=== PATIENT | female | born 1980 | race Two or more races ===

== ENCOUNTER 2018-07-02 14:44 | Emergency (ER) | payer SELFPAY ==
[~2018-07-02] VITALS: Ht 157.5 cm; Wt 64.9 kg
[2018-07-02] MEDS ORDERED: IV NORMAL SALINE 1000ML BAG 1,000 ML IV ONE (15:15)
[2018-07-02] MEDS ORDERED: ONDANSETRON PF 4 MG/2 ML VIAL. IV ONE (15:15)
[2018-07-02] MEDS ORDERED: MORPHINE SULFATE 4 MG/ML VIAL. IV ONE ×2 (15:15→17:45)
--- NOTE | 2018-07-02 15:19 | PHYS DOC ---
Past Medical History Past Medical History: No Pertinent History (BURAK GRAJEDA) Past Surgical History: Cholecystectomy (BURAK GRAJEDA) Alcohol Use: None Drug Use: None (BURAK GRAJEAD) Adult General Chief Complaint Chief Complaint: FLANK PAIN HPI HPI Patient is a 38 year old F who is indonesian speaking only so I spoke with her via the chip crusher operator phone. Pt reports L flank pain that wraps around her L side down to her L lower abd since yesterday with N/V. She denies any history of kidney stones. She denies fevers. She has been constipated and states she hasn't had a bowel movement in 2-3 days. Pt has had prior cholecystectomy, 4 prior c-sections, and a surgery for what sounds like an ovarian cyst. She is currently on control pills but states her periods have been somewhat irregular. (BURAK GRAJEDA) Review of Systems Review of Systems Constitutional: Denies fever or chills HENT: Denies nasal congestion or sore throat Respiratory: Denies cough or shortness of breath Cardiovascular: Denies chest pain GI: Reports abdominal pain on L side and nausea. No BM x 2-3 d : Denies dysuria or hematuria. Musculoskeletal: L flank pain Neurologic: Denies headache, focal weakness or sensory changes Endocrine: Denies polyuria or polydipsia All other systems were reviewed and found to be within normal limits, except as documented in this note. (BURAK GRAJEDA) Current Medications Current Medications Current Medications Medications (Trade) Dose Ordered Sig/Pancho Start Time Stop Time Status Last Admin Dose Admin Morphine Sulfate (Morphine Sulfate) 4 mg 1X ONCE 07/02/18 17:45 07/02/18 17:46 DC 07/02/18 17:54 4 MG Ondansetron HCl (Zofran) 4 mg 1X ONCE 07/02/18 15:15 07/02/18 15:20 DC 07/02/18 15:47 4 MG Sodium Chloride 1,000 ml @ 1,000 mls/hr 1X ONCE 07/02/18 15:15 07/02/18 16:14 DC 07/02/18 15:47 1,000 MLS/HR (ERAN MELARA MD) Allergies Allergies Allergies Coded Allergies Type Severity Reaction Last Updated Verified No Known Drug Allergies 09/28/13 No (ERAN MELARA MD) Physical Exam Physical Exam Constitutional: Well developed, well nourished, nontoxic appearance. Appears uncomfortable. HENT: Normocephalic, atraumatic, oropharynx moist Neck: Normal range of motion, no tenderness, supple, no stridor. Cardiovascular:Heart rate regular rhythm, no murmur Lungs & Thorax: Bilateral breath sounds clear to auscultation Abdomen: Bowel sounds normal, soft, no masses, no pulsatile masses. L sided abd pain down to LLQ. Skin: Warm, dry, no erythema, no rash. Back: L CVA tenderness. Extremities: No tenderness, no cyanosis, no clubbing, ROM intact, no edema. Neurologic: Alert and oriented X 3, normal motor function, normal sensory function, no focal deficits noted. Psychologic: Affect normal, judgement normal, mood normal. (BURAK GRAJEDA) Current Patient Data Vital Signs Vital Signs Date Time Temp Pulse Resp B/P (MAP) Pulse Ox O2 Delivery O2 Flow Rate FiO2 07/02/18 19:00 102 22 130/72 (91) 100 07/02/18 15:05 98.2 Room Air 98.2 (ERAN MELARA MD) Lab Values Laboratory Tests Test 07/02/18 14:50 07/02/18 14:57 07/02/18 15:40 Urine Color Yellow Urine Clarity Clear Urine pH 6.5 Urine Specific [place] 1.010 Urine Protein Negative mg/dL (NEG-TRACE) Urine Glucose (UA) Negative mg/dL (NEG) Urine Ketones (Stick) Negative mg/dL (NEG) Urine Blood Small (NEG) Urine Nitrite Negative (NEG) Urine Bilirubin Negative (NEG) Urine Urobilinogen Dipstick 0.2 mg/dL (0.2 mg/dL) Urine Leukocyte Esterase Negative (NEG) Urine RBC 1-2 /HPF (0-2) Urine WBC 1-4 /HPF (0-4) Urine Squamous Epithelial Cells Occ /LPF Urine Bacteria 0 /HPF (0-FEW) Urine Mucus Slight /LPF POC Urine HCG, Qualitative Hcg negative (Negative) White Blood Count 11.1 x10^3/uL (4.0-11.0) H Red Blood Count 4.43 x10^6/uL (3.50-5.40) Hemoglobin 11.2 g/dL (12.0-15.5) L Hematocrit 34.4 % (36.0-47.0) L Mean Corpuscular Volume 78 fL (79-100) L Mean Corpuscular Hemoglobin 25 pg (25-35) Mean Corpuscular Hemoglobin Concent 33 g/dL (31-37) Red Cell Distribution Width 19.3 % (11.5-14.5) H Platelet Count 463 x10^3/uL (140-400) H Neutrophils (%) (Auto) 73 % (31-73) Lymphocytes (%) (Auto) 16 % (24-48) L Monocytes (%) (Auto) 9 % (0-9) Eosinophils (%) (Auto) 1 % (0-3) Basophils (%) (Auto) 1 % (0-3) Neutrophils # (Auto) 8.2 x10^3uL (1.8-7.7) H Lymphocytes # (Auto) 1.8 x10^3/uL (1.0-4.8) Monocytes # (Auto) 1.0 x10^3/uL (0.0-1.1) Eosinophils # (Auto) 0.1 x10^3/uL (0.0-0.7) Basophils # (Auto) 0.1 x10^3/uL (0.0-0.2) Maternal Serum HCG Beta Subunit < 1 mIU/mL (0-5) Sodium Level 137 mmol/L (136-145) Potassium Level 3.9 mmol/L (3.5-5.1) Chloride Level 102 mmol/L (98-107) Carbon Dioxide Level 23 mmol/L (21-32) Anion Gap 12 (6-14) Blood Urea Nitrogen 7 mg/dL (7-20) Creatinine 0.8 mg/dL (0.6-1.0) Estimated GFR (Cockcroft-Gault) 79.9 BUN/Creatinine Ratio 9 (6-20) Glucose Level 87 mg/dL (70-99) Calcium Level 9.2 mg/dL (8.5-10.1) Total Bilirubin 0.3 mg/dL (0.2-1.0) Aspartate Amino Transferase (AST) 19 U/L (15-37) Alanine Aminotransferase (ALT) 21 U/L (14-59) Alkaline Phosphatase 104 U/L (46-116) Total Protein 8.8 g/dL (6.4-8.2) H Albumin 3.8 g/dL (3.4-5.0) Albumin/Globulin Ratio 0.8 (1.0-1.7) L Laboratory Tests 07/02/18 15:40 Laboratory Tests 07/02/18 15:40 (ERAN MELARA MD) EKG EKG [] (BURAK GRAJEDA) Radiology/Procedures Radiology/Procedures CT shows 6mm L ureteral stone at UVJ (BURAK GRAJEDA) Course & Med Decision Making Course & Med Decision Making Pertinent Labs and Imaging studies reviewed. (See chart for details) 6 mm L UVJ stone noted on CT. Pt has a few bacteria on urine, nothing too significant but with this stone size will cover with Keflex, Flomax, [place] and Zofran. I have recommended rest and fluids and close follow up with urology. Name and number for Dr. Loera provided. Pt to return with any worsening symptoms. Discussed all findings and care plan with pt via chip crusher operator phone. (BURAK GRAJEDA) Course & Med Decision Making Staff Physician Addendum: I was working in the ER during the course of this patient's visit. I was avail able for consultation as needed, but I was not directly involved in the care of this patient. (ERAN MELARA MD) Dragon Disclaimer Dragon Disclaimer This electronic medical record was generated, in whole or in part, using a voice recognition dictation system. (BURAK GRAJEDA) Departure Departure Impression: Primary Impression: Kidney stone on left side Disposition: HOME, SELF-CARE Condition: IMPROVED Referrals: UNKNOWN PCP NAME (PCP) RICKI LOERA MD Patient Instructions: Kidney Stones, [id number] Additional Instructions: Push fluids, rest and follow up closely with urology, Dr. Loera. Scripts Ondansetron Hcl (ZOFRAN) 4 Mg Tablet 1 TAB PO Q6HRS, #20 TAB Prov: BURAK GRAJEDA 07/02/18 Tamsulosin Hcl (FLOMAX) 0.4 Mg Cap.er.24h 1 CAP PO DAILY, #14 CAP 11 Refills Prov: BURAK GRAJEDA 07/02/18 Hydrocodone/Apap 5-325 (NORCO 5-325 TABLET) 1 Each Tablet 1-2 TAB PO Q4-6HRS PRN for PAIN, #20 TAB Prov: BURAK GRAJEDA 07/02/18 Cephalexin (KEFLEX) 500 Mg Capsule 1 CAP PO TID, #21 CAP Prov: BURAK GRAJEDA 07/02/18 BURAK GRAJEDA July 02, 2018 15:19 ERAN MELARA MD July 04, 2018 00:47
[2018-07-02 15:23] LABS: BILIRUBIN,URINE NEGATIVE (NEG); CLARITY,URINE CLEAR; COLOR,URINE YELLOW; NITRITE,URINE NEGATIVE (NEG); PH,URINE 6.5; PROTEIN,URINE NEGATIVE (NEG-TRACE); UROBILINOGEN,URINE 0.2 mg/dL (0.2 mg/dL)
[2018-07-02 15:30] LABS: BACTERIA,URINE 0 /HPF (0-FEW); SQUAMOUS EPITHELIAL CELL,UR OCC /LPF
[2018-07-02 15:50] LABS: BASO # 0.1 x10^3/uL (0.0-0.2); BASO % 1 % (0-3); EOS # 0.1 x10^3/uL (0.0-0.7); EOS % 1 % (0-3); HEMATOCRIT 34.4 % (36.0-47.0); HEMOGLOBIN 11.2 g/dL (12.0-15.5); LYMPH # 1.8 x10^3/uL (1.0-4.8); LYMPH % 16 % (24-48); MEAN CORPUSCULAR HEMOGLOBIN 25 pg (25-35); MEAN CORPUSCULAR HGB CONC 33 g/dL (31-37); MEAN CORPUSCULAR VOLUME 78 fL (79-100); MONO % 9 % (0-9); NEUT # 8.2 x10^3uL (1.8-7.7); NEUT % 73 % (31-73); PLATELET COUNT 463 x10^3/uL (140-400); RED BLOOD COUNT 4.43 x10^6/uL (3.50-5.40); RED CELL DISTRIBUTION WIDTH 19.3 % (11.5-14.5); WHITE BLOOD COUNT 11.1 x10^3/uL (4.0-11.0)
[2018-07-02 16:13] LABS: CALCIUM 9.2 mg/dL (8.5-10.1); CREATININE 0.8 mg/dL (0.6-1.0); GFR 79.9; POTASSIUM 3.9 mmol/L (3.5-5.1)
[2018-07-02 16:17] LABS: ALBUMIN 3.8 g/dL (3.4-5.0); ALBUMIN/GLOBULIN RATIO 0.8 (1.0-1.7); TOTAL BILIRUBIN 0.3 mg/dL (0.2-1.0); TOTAL PROTEIN 8.8 g/dL (6.4-8.2)
[2018-07-02] MEDS ORDERED: TAMS0.4C97 PO (18:16)
[2018-07-02] MEDS ORDERED: CEPH-264 PO (18:16)
[2018-07-02] MEDS ORDERED: HYDR-3164 PO (18:16)
[2018-07-02] MEDS ORDERED: ONDA4TAB7 PO (18:16)
[2018-07-02 19:00] VITALS: BP 130/72
--- NOTE | 2018-07-03 09:49 | RAD ---
CT abdomen pelvis without contrast dated 07/02/2018. No comparison available. Clinical indication: Left flank pain. TECHNIQUE: Contiguous axial imaging of the abdomen and pelvis performed without the administration of intravenous contrast. One or more of the following individualized dose reduction techniques were utilized for this examination: 1. Automated exposure control 2. Adjustment of the mA and/or kV according to patient size 3. Use of iterative reconstruction technique. FINDINGS: 6 mm calcific stone versus cluster of small stones at the left UVJ with mild proximal hydroureter and hydronephrosis. Inflammatory stranding in the left perinephric fat with asymmetric enlargement of the left kidney. No calcific stone within the substance of either kidney. No right ureteral stone or hydronephrosis. Solid abdominal viscera not well evaluated in the absence of contrast material. No apparent attenuation abnormality of the liver or spleen. Gallbladder surgically absent. Pancreas and adrenal glands are unremarkable. Unopacified GI tract normal in caliber and contour. No focal bowel wall thickening. No inflammatory stranding in the mesentery. The appendix is not clearly identified. No adenopathy or ascites. Abdominal aorta normal in caliber. Images of pelvis show nondistended urinary bladder. Uterus and adnexa are unremarkable. No free fluid or lymphadenopathy. Limited images of lung bases are clear. There is a noncalcified pulmonary nodule in the right lower lobe on image 10 measures 6 mm in size. Heart size within normal limits. No pleural or pericardial effusion. Bone windows show no acute findings. IMPRESSION: 1. There is a 6 mm stone or cluster of small stones at the left UVJ with mild obstructive uropathy. 2. Indeterminate 6 mm noncalcified pulmonary nodule in the right lower lobe. Recommend clinical correlation. Follow-up imaging in 6-12 months to ensure stability. 3. Status post cholecystectomy. Electronically signed by: Akash Martin MD (07/02/2018 5:38 PM) [facility]
== END 2018-07-02 19:00 | disposition home or self-care (01) ==
LOC: ER 14:44
DX: N20.0 Calculus of kidney (principal); R11.2 Nausea with vomiting, unspecified; Z90.49 Acquired absence of other specified parts of digestive tract
CPT/HCPCS: 36415; 74176; 80053; 81001; 81025; 84702; 85025; 96361; 96374; 96375; 96376; 99285; J2270; J2405; J7030

== ENCOUNTER 2021-05-31 16:47 | Inpatient (IN) | payer SELFPAY ==
[~2021-05-31] VITALS: Ht 149.9 cm; Wt 72.9 kg
[~2021-05-31 16:47] MED LIST: CEPH-264 PO; HYDR-3164 PO; ONDA4TAB7 PO; TAMS0.4C97 PO
[2021-05-31] MEDS ORDERED: MORPHINE SULFATE 4 MG/ML INJ. IV/SQ PRN (17:15)
[2021-05-31] MEDS ORDERED: NITROGLYCERIN SUBLINGUAL 0.4 MG BOTTLE OF 25. SL PRN (17:15)
[2021-05-31] MEDS ORDERED: ASPIRIN 325 MG TABLET PO ONE (17:15)
[2021-05-31 17:31] LABS: BARBITURATES NEG (NEG); BENZODIAZEPINES NEG (NEG); CANNABINOIDS NEG (NEG); COCAINE NEG (NEG); METHADONE NEG (NEG); OPIATES NEG (NEG); PHENCYCLIDINE NEG (NEG)
--- NOTE | 2021-05-31 17:31 | RAD ---
XR CHEST 1V History: Reason: chest pain / Spl. Instructions: / History: Comparison: None. Findings: Low lung volumes with mild bibasilar linear atelectasis. No consolidation or pleural effusion. No pne umothorax. Normal heart size. Impression: 1. Low lung volumes with mild bibasilar linear atelectasis. Electronically signed by: Dallas Hale DO (05/31/2021 5:28 PM) [facility] [place]
[2021-05-31 17:34] LABS: AMPHETAMINE/METHAMPHETAMINE NEG (NEG)
[2021-05-31 17:42] LABS: BASO # 0.1 x10^3/uL (0.0-0.2); BASO % 1 % (0-3); EOS # 0.4 x10^3/uL (0.0-0.7); EOS % 4 % (0-3); HEMATOCRIT 34.9 % (36.0-47.0); HEMOGLOBIN 11.8 g/dL (12.0-15.5); LYMPH # 2.8 x10^3/uL (1.0-4.8); LYMPH % 30 % (24-48); MEAN CORPUSCULAR HEMOGLOBIN 29 pg (25-35); MEAN CORPUSCULAR HGB CONC 34 g/dL (31-37); MEAN CORPUSCULAR VOLUME 86 fL (79-100); MONO # 0.7 x10^3/uL (0.0-1.1); MONO % 7 % (0-9); NEUT # 5.5 x10^3/uL (1.8-7.7); NEUT % 58 % (31-73); PLATELET COUNT 406 x10^3/uL (140-400); RED BLOOD COUNT 4.08 x10^6/uL (3.50-5.40); RED CELL DISTRIBUTION WIDTH 14.7 % (11.5-14.5); WHITE BLOOD COUNT 9.4 x10^3/uL (4.0-11.0)
[2021-05-31 17:46] LABS: BACTERIA,URINE FEW /HPF (0-FEW)
[2021-05-31 18:00] LABS: CALCIUM 8.7 mg/dL (8.5-10.1); CREATININE 0.6 mg/dL (0.6-1.0); GFR 110.2; POTASSIUM 3.4 mmol/L (3.5-5.1)
[2021-05-31] MEDS ORDERED: ONDANSETRON PF 4 MG/2 ML VIAL. IVP ONE (18:00)
[2021-05-31 18:05] LABS: ALBUMIN 3.4 g/dL (3.4-5.0); ALBUMIN/GLOBULIN RATIO 0.8 (1.0-1.7); TOTAL BILIRUBIN 0.3 mg/dL (0.2-1.0); TOTAL PROTEIN 7.8 g/dL (6.4-8.2)
[2021-05-31 19:12] LABS: U PREG PATIENT NEGATIVE (NEG)
--- NOTE | 2021-05-31 19:18 | PHYS DOC ---
Past Medical History Past Medical History: Diabetes-Type II, Hypertension, Other Additional Past Medical Histor: Fibroids Past Surgical History: Cholecystectomy, , Other Additional Past Surgical Histo: cystectomy Smoking Status: Current Some Day Smoker Alcohol Use: None Drug Use: None General Adult EDM: Chief Complaint: CHEST PAIN HPI: HPI: Patient is a 40 year old female who presents to the ED today complaining of 7 out of 10 right-sided chest pain radiating to the left, symptoms began yesterday at 8 PM. Patient describes the pain as sharp and intermittent. Denies anything specifically exacerbating or relieving the pain. She is also complaining of nausea. Denies any vomiting. Denies any shortness of breath. Patient is Greenlandic-speaking and a family member did the interpretation Review of Systems: Review of Systems: Constitutional: Denies fever or chills. [] Eyes: Denies change in visual acuity. [] HENT: Denies nasal congestion or sore throat. [] Respiratory: Denies cough or shortness of breath. [] Cardiovascular: Reports chest pain GI: Reports nausea. Denies abdominal pain, bloody stools or diarrhea. [] : Denies dysuria. [] Musculoskeletal: Denies back pain or joint pain. [] Integument: Denies rash. [] Neurologic: Denies headache, focal weakness or sensory changes. [] ] Psychiatric: Denies depression or anxiety. [] Heart Score: C/O Chest Pain: Yes Risk Factors: Risk Factors: DM, Current or recent (<one month) smoker, HTN, HLP, family history of CAD, obesity. Risk Scores: Score 0 - 3: 2.5% MACE over next 6 weeks - Discharge Home Score 4 - 6: 20.3% MACE over next 6 weeks - Admit for Clinical Observation Score 7 - 10: 72.7% MACE over next 6 weeks - Early Invasive Strategies Current Medications: Current Medications Medications (Trade) Dose Ordered Sig/Pancho Start Time Stop Time Status Last Admin Dose Admin Aspirin (Sona Aspirin) 325 mg 1X ONCE 05/31/21 17:15 05/31/21 17:16 DC 05/31/21 17:35 325 MG Morphine Sulfate (Morphine Sulfate) 4 mg PRN Q15MIN PRN 05/31/21 17:15 06/01/21 17:14 05/31/21 17:37 4 MG Nitroglycerin (Nitrostat) 0.4 mg PRN Q5MIN PRN 05/31/21 17:15 06/01/21 17:14 05/31/21 17:35 0.4 MG Ondansetron HCl (Zofran) 4 mg 1X ONCE 05/31/21 18:00 05/31/21 18:01 DC 05/31/21 18:05 4 MG Allergies: Allergies: Allergies Coded Allergies Type Severity Reaction Last Updated Verified No Known Drug Allergies 09/28/13 No Physical Exam: PE: Constitutional: Well developed, well nourished, no acute distress, non-toxic appearance. [] HENT: Normocephalic, atraumatic, bilateral external ears normal, oropharynx laci st, no oral exudates, nose normal. [] Eyes: PERRLA, EOMI, conjunctiva normal, no discharge. [] Neck: Normal range of motion, no tenderness, supple, no stridor. [] Cardiovascular:Heart rate regular rhythm, no murmur [] Lungs & Thorax: Bilateral breath sounds clear to auscultation [] Abdomen: Bowel sounds normal, soft, no tenderness, no masses, no pulsatile masses. [] Skin: Warm, dry, no erythema, no rash. [] Back: No tenderness, no CVA tenderness. [] Extremities: No tenderness, no cyanosis, no clubbing, ROM intact, no edema. [] Neurologic: Alert and oriented X 3, normal motor function, normal sensory function, no focal deficits noted. [] Psychologic: Affect normal, judgement normal, mood normal. [] Current Patient Data: Labs: Laboratory Tests Test 05/31/21 16:59 05/31/21 17:30 Urine Collection Type Unknown Urine Color (Auto) Light yellow Urine Turbidity Clear Urine pH (Auto) 6.0 (<5.0-8.0) Urine Specific [place] 1.025 (1.000-1.030) Urine Protein (Auto) Negative mg/dL (Negative) Urine Glucose (Auto)(UA) Negative mg/dL (Negative) Urine Ketones (Auto) Negative mg/dL (Negative) Urine Blood (Auto) Large (Negative) Urine Nitrite Negative (Negative) Urine Bilirubin (Auto) Negative (Negative) Urine Urobilinogen (Auto) Normal mg/dL (Normal) Urine Leukocyte Esterase (Auto) Negative (Negative) Urine RBC 6-10 /HPF (0-2) Urine WBC 1-4 /HPF (0-4) Urine Squamous Epithelial Cells Many /LPF Urine Bacteria Few /HPF (0-FEW) Urine Mucus Marked /LPF Urine Test Negative (NEG) Urine Opiates Screen Neg (NEG) Urine Methadone Screen Neg (NEG) Urine Barbiturates Neg (NEG) Urine Phencyclidine Screen Neg (NEG) Urine Amphetamine/Methamphetamine Neg (NEG) Urine Benzodiazepines Screen Neg (NEG) Urine Cocaine Screen Neg (NEG) Urine Cannabinoids Screen Neg (NEG) Urine Ethyl Alcohol Neg (NEG) White Blood Count 9.4 x10^3/uL (4.0-11.0) Red Blood Count 4.08 x10^6/uL (3.50-5.40) Hemoglobin 11.8 g/dL (12.0-15.5) L Hematocrit 34.9 % (36.0-47.0) L Mean Corpuscular Volume 86 fL (79-100) Mean Corpuscular Hemoglobin 29 pg (25-35) Mean Corpuscular Hemoglobin Concent 34 g/dL (31-37) Red Cell Distribution Width 14.7 % (11.5-14.5) H Platelet Count 406 x10^3/uL (140-400) H Neutrophils (%) (Auto) 58 % (31-73) Lymphocytes (%) (Auto) 30 % (24-48) Monocytes (%) (Auto) 7 % (0-9) Eosinophils (%) (Auto) 4 % (0-3) H Basophils (%) (Auto) 1 % (0-3) Neutrophils # (Auto) 5.5 x10^3/uL (1.8-7.7) Lymphocytes # (Auto) 2.8 x10^3/uL (1.0-4.8) Monocytes # (Auto) 0.7 x10^3/uL (0.0-1.1) Eosinophils # (Auto) 0.4 x10^3/uL (0.0-0.7) Basophils # (Auto) 0.1 x10^3/uL (0.0-0.2) D-Dimer (Tamera) 0.23 ug/mlFEU (0.00-0.50) Sodium Level 139 mmol/L (136-145) Potassium Level 3.4 mmol/L (3.5-5.1) L Chloride Level 104 mmol/L (98-107) Carbon Dioxide Level 26 mmol/L (21-32) Anion Gap 9 (6-14) Blood Urea Nitrogen 10 mg/dL (7-20) Creatinine 0.6 mg/dL (0.6-1.0) Estimated GFR (Cockcroft-Gault) 110.2 BUN/Creatinine Ratio 17 (6-20) Glucose Level 119 mg/dL (70-99) H Calcium Level 8.7 mg/dL (8.5-10.1) Magnesium Level 2.0 mg/dL (1.8-2.4) Total Bilirubin 0.3 mg/dL (0.2-1.0) Aspartate Amino Transferase (AST) 20 U/L (15-37) Alanine Aminotransferase (ALT) 30 U/L (14-59) Alkaline Phosphatase 107 U/L (46-116) Troponin I High Sensitivity 5 ng/L (4-50) HD-Wzg-P-Type Natriuretic Peptide 17 pg/mL (0-124) Total Protein 7.8 g/dL (6.4-8.2) Albumin 3.4 g/dL (3.4-5.0) Albumin/Globulin Ratio 0.8 (1.0-1.7) L Thyroid Stimulating Hormone (TSH) 1.019 uIU/mL (0.358-3.74) Laboratory Tests 05/31/21 17:30 Laboratory Tests 05/31/21 17:30 Vital Signs: Vital Signs Date Time Temp Pulse Resp B/P (MAP) Pulse Ox O2 Delivery O2 Flow Rate FiO2 05/31/21 18:06 98 18 115/69 (84) 98 Room Air 05/31/21 17:00 98.1 98.1 EKG: EKG: [] Radiology/Procedures: Radiology/Procedures: []PROCEDURE: CT CHEST ABD PELVIS W/CONTRAST CT of chest without contrast. CT abdomen and pelvis with contrast Contrast: 75 mL Isovue 370 intravenous contrast. PQRS statement: CT scans at this facility use dose reduction including either automated exposure control, iterative reconstructions, and /or weight based radiation dosing via mA and kV modification when appropriate to reduce radiation dose to as low as reasonably achievable. History: Intractable vomiting. Chest pain. Chest findings: Small sliding hiatal hernia with gastroesophageal junction. Heart size upper limits of normal. Aorta, coronary vessels and esophagus are normal. No adenopathy. Trachea and bronchi are unremarkable. There are mild heterogeneous groundglass opacities at the left upper lobe apicoposterior segment and there is a mild mosaic attenuation at the left upper lobe and bilateral lower lobe superior segments. Mild thoracic scoliosis. Abdomen findings: Cholecystectomy. Left renal lower pole of 1.5 cm parapelvic cyst density of 9 units. Right kidney, adrenal glands, pancreas, spleen and erasto er are normal. Appendix not visualized and is surgically absent. No obstruction or inflammation of the GI tract. No abdominal fluid or adenopathy. Pelvis findings: Uterine masses largest is a right uterine fundus heterogeneous enhancing 6 cm mass. Ovaries, bladder, rectum and bones are unremarkable. No pelvic fluid or adenopathy. IMPRESSION: 1. Heterogeneous groundglass opacities at the left upper lower lobes may represent an infectious/inflammatory process. Follow-up CT chest imaging in 3-6 months is advised to document that this resolves. 2. No acute process in the abdomen or pelvis. 3. Uterine masses largest is a 6 cm mass at the uterine fundus. These are most likely leiomyomas. Further assessment with outpatient pelvic sonography is advised. Electronically signed by: Marisol Grissom MD (05/31/2021 11:11 PM) [facility] [place]CTATED and SIGNED BY: MARISOL GRISSOM MD DATE: 05/31/212300 PROCEDURE: PORTABLE CHEST 1V XR CHEST 1V History: Reason: chest pain / Spl. Instructions: / History: Comparison: None. Findings: Low lung volumes with mild bibasilar linear atelectasis. No consolidation or pleural effusion. No pneumothorax. Normal heart size. Impression: 1. Low lung volumes with mild bibasilar linear atelectasis. Electronically signed by: Dallas Hale DO (05/31/2021 5:28 PM) [facility] and SIGNED BY: DALLAS HALE DO DATE: 05/31/211727 Course & Med Decision Making: Course & Med Decision Making Pertinent Labs and Imaging studies reviewed. (See chart for details) This a 40-year-old female patient presenting to the ED today with complaints of left-sided chest pain radiating to the right side, symptoms have been going on since yesterday, patient is also complaining of nausea. Vitals on arrival to the ED temperature 98.1, heart rate 87, respiration 18 on room air, blood pressure 109/72. CBC with a hemoglobin of 11.8 and hematocrit of 34.9, history of chronic anemia, D-dimer 0.23, CMP with nothing significantly acute Chest x-ray negative for any acute findings 2 high-sensitivity troponins were done which were negative, EKG is negative Patient has vomited several times in the ED despite giving her Zofran, liter of fluid and now Reglan. Patient to be admitted to the hospital, CT of the abdomen and pelvis was also ordered, noted for leiomyomas, and heterogeneous groundglass opacities at the left upper lower lobes may represent an infectious/inflammatory process. Follow- up CT chest imaging in 3-6 months is advised to document that this resolves. COVID test pending Patient admitted to the hospital. Report to be given to the hospitalist by the ED physician tomorrow. Routine consult placed for cardiology as well as LUCILA Stratton Disclaimer: [place] Disclaimer: This electronic medical record was generated, in whole or in part, using a voice recognition dictation system. Departure Departure Impression: Primary Impression: Chest pain Qualified Codes: R07.9 - Chest pain, unspecified Additional Impressions: Intractable nausea and vomiting Leiomyoma Disposition: ADMITTED INPATIENT Condition: STABLE Referrals: UNKNOWN PCP NAME (PCP) SHAYE CROWDER APRN May 31, 2021 19:18
--- NOTE | 2021-05-31 19:40 | EKG ---
[facility] [address] [place] [address] Test Date: 2021-05-31 Test Time: 17:08:24 Pat Name: LILIA Quigleypartment: Room: Gender: F Herb Grower: : 1980 Requested By: SHAYE CROWDER Order Number: [id number] Reading MD: Samuel Romero Measurements Intervals [place] Rate: 86 P: 0 RI: 132 QRS: 61 QRSD: 74 T: 22 QT: 338 QTc: 407 Interpretive Statements SINUS RHYTHM NORMAL ECG RI6.02 No previous ECG available for comparison Electronically Signed On 06-02-2021 18:17:22 CDT by Samuel Romero
--- NOTE | 2021-05-31 19:41 | EKG ---
[facility] [address] [place] [address] Test Date: 2021-05-31 Test Time: 17:06:34 Pat Name: LILIA Quigleypartment: Room: Gender: F Winch Driver: : 1980 Requested By: SHAYE CROWDER Order Number: [id number] Reading MD: Samuel Romero Measurements Intervals [place] Rate: 90 P: 142 IL: 128 QRS: 72 QRSD: 72 T: 20 QT: 340 QTc: 420 Interpretive Statements SINUS RHYTHM T ABNORMALITY IN INFERIOR LEADS Electronically Signed On 06-02-2021 18:17:37 CDT by Samuel Romero
[2021-05-31] MEDS ORDERED: IOHEXOL 300 MG/ML 100ML VIAL. IV ONE (22:30)
[2021-05-31] MEDS ORDERED: METOCLOPRAMIDE HCL 10 MG/2 ML VIAL. IVP ONE (22:30)
--- NOTE | 2021-05-31 23:13 | RAD ---
CT of chest without contrast. CT abdomen and pelvis with contrast Contrast: 75 mL Isovue 370 intravenous contrast. PQRS statement: CT scans at this facility use dose reduction including either automated exposure cont rol, iterative reconstructions, and /or weight based radiation dosing via mA and kV modification when appropriate to reduce radiation dose to as low as reasonably achievable. History: Intractable vomiting. Chest pain. Chest findings: Small sliding hiatal hernia with gastroesophageal junction. Heart size upper limits o f normal. Aorta, coronary vessels and esophagus are normal. No adenopathy. Trachea and bronchi are un remarkable. There are mild heterogeneous groundglass opacities at the left upper lobe apicoposterior segment and there is a mild mosaic attenuation at the left upper lobe and bilateral lower lobe superi or segments. Mild thoracic scoliosis. Abdomen findings: Cholecystectomy. Left renal lower pole of 1.5 cm parapelvic cyst density of 9 units . Right kidney, adrenal glands, pancreas, spleen and liver are normal. Appendix not visualized and is surgically absent. No obstruction or inflammation of the GI tract. No abdominal fluid or adenopathy. Pelvis findings: Uterine masses largest is a right uterine fundus heterogeneous enhancing 6 cm mass. Ovaries, bladder, rectum and bones are unremarkable. No pelvic fluid or adenopathy. IMPRESSION: 1. Heterogeneous groundglass opacities at the left upper lower lobes may represent an infectious/infl ammatory process. Follow-up CT chest imaging in 3-6 months is advised to document that this resolves. 2. No acute process in the abdomen or pelvis. 3. Uterine masses largest is a 6 cm mass at the uterine fundus. These are most likely leiomyomas. Fur ther assessment with outpatient pelvic sonography is advised. Electronically signed by: Alfredo Hope MD (05/31/2021 11:11 PM) [facility]
[2021-06-01] VITALS: BP 130/73
[2021-06-01] MEDS ORDERED: METOCLOPRAMIDE HCL 10 MG/2 ML VIAL. IVP PRN
[2021-06-01] MEDS ORDERED: IV NORMAL SALINE 1000ML BAG 1,000 ML IV ONE
[2021-06-01] MEDS ORDERED: fentaNYL PF VIAL 100 MCG/2 ML VIAL IVP PRN
[2021-06-01] MEDS ORDERED: ONDANSETRON PF 4 MG/2 ML VIAL. IVP PRN
[2021-06-01] MEDS ORDERED: NITROGLYCERIN SUBLINGUAL 0.4 MG BOTTLE OF 25. SL PRN
--- NOTE | 2021-06-01 | NUR ---
The patient, LILIA CHRISTIANSON, 40 y/o, F admitted by SUSANA MOY MD, was given written information regarding hospital policies, unit procedures and contact persons. Valuables were checked and all questions answered. Covid swabs to be obtained. Pt. currently without nausea. Will continue to monitor.
[2021-06-01] MEDS ORDERED: LISI10TA16 PO (00:26)
[2021-06-01] MEDS ORDERED: METF-658 PO (00:26)
[2021-06-01] MEDS ORDERED: ATOR10TA60 PO (00:26)
[2021-06-01 01:50] LABS: BASO # 0.1 x10^3/uL (0.0-0.2); BASO % 1 % (0-3); EOS # 0.1 x10^3/uL (0.0-0.7); EOS % 1 % (0-3); HEMATOCRIT 36.7 % (36.0-47.0); HEMOGLOBIN 11.9 g/dL (12.0-15.5); LYMPH # 2.1 x10^3/uL (1.0-4.8); LYMPH % 20 % (24-48); MEAN CORPUSCULAR HEMOGLOBIN 28 pg (25-35); MEAN CORPUSCULAR HGB CONC 32 g/dL (31-37); MEAN CORPUSCULAR VOLUME 86 fL (79-100); MONO # 0.4 x10^3/uL (0.0-1.1); MONO % 4 % (0-9); NEUT % 75 % (31-73); PLATELET COUNT 440 x10^3/uL (140-400); RED BLOOD COUNT 4.27 x10^6/uL (3.50-5.40); RED CELL DISTRIBUTION WIDTH 14.9 % (11.5-14.5); WHITE BLOOD COUNT 10.7 x10^3/uL (4.0-11.0)
[2021-06-01 02:05] LABS: ALBUMIN 3.6 g/dL (3.4-5.0); ALBUMIN/GLOBULIN RATIO 0.8 (1.0-1.7); CALCIUM 8.7 mg/dL (8.5-10.1); CREATININE 0.5 mg/dL (0.6-1.0); POTASSIUM 3.8 mmol/L (3.5-5.1); TOTAL BILIRUBIN 0.4 mg/dL (0.2-1.0); TOTAL PROTEIN 8.1 g/dL (6.4-8.2)
[2021-06-01 03:00] VITALS: BP 101/52
[2021-06-01] MEDS ORDERED: IOHEXOL 300 MG/ML 100ML VIAL. ONE (03:04)
[2021-06-01 07:00] VITALS: BP 100/50
--- NOTE | 2021-06-01 08:34 | PDOC1 ---
History and Physical Date of Service: DOS: DATE: 06/01/21 TIME: 08:26 Chief Complaint: Chief Complain: Chest pain History of Present Illness: HPI: 40 year old Telugu speaking female who presents to the ED today complaining of 7 out of 10 right-sided chest pain radiating to the left, symptoms began yesterday at 8 PM. Patient describes the pain as sharp and intermittent. Denies anything specifically exacerbating or relieving the pain. She is also complaining of nausea. Denies any vomiting. Denies any shortness of breath. Past Medical/Surgical History: PMH/PSH: Past Medical History: Diabetes-Type II, Hypertension, Fibroids Past Surgical History: Cholecystectomy, , cystectomy Allergies: Allergies: Coded Allergies: No Known Drug Allergies (Unverified , 09/28/13) Family History: Family History: Reviewed with neurology findings in the chart Social History: Social History: Smoking Status: Current Some Day Smoker Alcohol Use: None Drug Use: None Current Medications: Current Medications Current Medications Aspirin (Sona Aspirin) 325 mg 1X ONCE PO Last administered on 05/31/21at 17:35; Start 05/31/21 at 17:15; Stop 05/31/21 at 17:16; Status DC Nitroglycerin (Nitrostat) 0.4 mg PRN Q5MIN PRN SL CP RATING > 1/10 Last ad ministered on 05/31/21at 17:35; Start 05/31/21 at 17:15; Stop 06/01/21 at 17:14 Morphine Sulfate (Morphine Sulfate) 4 mg PRN Q15MIN PRN IV/SQ PAIN GREATER THAN 3/10 Last administered on 05/31/21at 17:37; Start 05/31/21 at 17:15; Stop 06/01/21 at 17:14 Ondansetron HCl (Zofran) 4 mg 1X ONCE IVP Last administered on 05/31/21at 18:05; Start 05/31/21 at 18:00; Stop 05/31/21 at 18:01; Status DC Metoclopramide HCl (Reglan Vial) 10 mg 1X ONCE IVP Last administered on 05/31/21at 22:53; Start 05/31/21 at 22:30; Stop 05/31/21 at 22:31; Status DC Iohexol (Omnipaque 300 Mg/ml) 75 ml 1X ONCE IV Last administered on 05/31/21at 22:34; Start 05/31/21 at 22:30; Stop 05/31/21 at 22:31; Status DC Ondansetron HCl (Zofran) 4 mg PRN Q8HRS PRN IVP NAUSEA/VOMITING; Start 06/01/21 at 00:00; Stop 06/01/21 at 23:59 Fentanyl Citrate (Fentanyl 2ml Vial) 50 mcg PRN Q1HR PRN IVP PAIN; Start 06/01/21 at 00:00; Stop 06/01/21 at 23:59 Nitroglycerin (Nitrostat) 0.4 mg PRN Q5MIN PRN SL CHEST PAIN; Start 06/01/21 at 00:00; Stop 06/01/21 at 23:59 Sodium Chloride 1,000 ml @ 100 mls/hr 1X ONCE IV Last administered on 06/01/21at 00:11; Start 06/01/21 at 00:00; Stop 06/01/21 at 09:59 Metoclopramide HCl (Reglan Vial) 10 mg PRN Q6HRS PRN IVP NAUSEA/VOMITING; Start 06/01/21 at 00:00 Famotidine (Pepcid Vial) 20 mg BID IVP ; Start 06/01/21 at 09:00 Iohexol (Omnipaque 300 Mg/ml) 100 ml STK-MED ONCE .ROUTE ; Start 06/01/21 at 03:04; Stop 06/01/21 at 03:04; Status DC Active Scripts Active [place] 5-325 Tablet (Acetaminophen/Hydrocodone Bitart) 1 Each Tablet 1-2 Tab PO Q4-6HRS PRN Reported Metformin Hcl Er (Metformin Hcl) 500 Mg Tab.er.24h 500 Mg PO DAILYWBKFT Atorvastatin Calcium 10 Mg Tablet 1 Tab PO DAILY Lisinopril 10 Mg Tablet 1 Tab PO DAILY ROS: Review of Systems Review of System REVIEW OF SYSTEMS: GENERAL: Denies weakness SKIN: No bruising, hair changes or rashes. EYES: No blurred, double or loss of vision. NOSE AND THROAT: No history of nosebleeds, hoarseness or sore throat. HEART: Positive for chest pain LUNGS: Denies cough, hemoptysis, wheezing or shortness of breath. GASTROINTESTINAL: Denies changes in appetite, nausea, vomiting, diarrhea or constipation. GENITOURINARY: No history of frequency, urgency, hesitancy or nocturia. NEUROLOGIC: Denies history of numbness, tingling, or tremor. PSYCHIATRIC: No history of panic, anxiety or depression. ENDOCRINE: No history of heat or cold intolerance, polyuria or polydipsia. EXTREMITIES: Denies joint pain, pain on walking or stiffness. Physical Exam: Vital Signs: Vital Signs Date Time Temp Pulse Resp B/P (MAP) Pulse Ox O2 Delivery O2 Flow Rate FiO2 06/01/21 07:00 98.3 90 18 100/50 (67) 96 Room Air 98.3 Physcial Exam: General: Well developed, well nourished, no acute distress, well appearing HEENT: Pupils equally round and reactive to light, EOMI, no discharge, normal conjunctiva Neck: Supple, no nuchal rigidity, no JVD, trachea midline, no tenderness Cardiac: RRR, no murmurs, no gallops, no rubs Chest/Lungs: CTAB, no wheeze, no rhonchi, no crackles Abdomen: soft, non-distended, no guarding, no peritoneal signs, non-tender Back: No tenderness Extremities: no edema, pulses intact, non-tender,capillary refill <3 sec bilateral upper and lower extremities, Neuro: Alert and oriented x 4, no focal deficits, normal speech Labs: Labs: Laboratory Tests Test 05/31/21 16:59 05/31/21 17:30 05/31/21 20:54 06/01/21 00:10 Urine Collection Type Unknown Urine Color (Auto) Light yellow Urine Turbidity Clear Urine pH (Auto) 6.0 (<5.0-8.0) Urine Specific [place] 1.025 (1.000-1.030) Urine Protein (Auto) Negative mg/dL (Negative) Urine Glucose (Auto)(UA) Negative mg/dL (Negative) Urine Ketones (Auto) Negative mg/dL (Negative) Urine Blood (Auto) Large (Negative) Urine Nitrite Negative (Negative) Urine Bilirubin (Auto) Negative (Negative) Urine Urobilinogen (Auto) Normal mg/dL (Normal) Urine Leukocyte Esterase (Auto) Negative (Negative) Urine RBC 6-10 /HPF (0-2) Urine WBC 1-4 /HPF (0-4) Urine Squamous Epithelial Cells Many /LPF Urine Bacteria Few /HPF (0-FEW) Urine Mucus Marked /LPF Urine Test Negative (NEG) Urine Opiates Screen Neg (NEG) Urine Methadone Screen Neg (NEG) Urine Barbiturates Neg (NEG) Urine Phencyclidine Screen Neg (NEG) Urine Amphetamine/Methamphetamine Neg (NEG) Urine Benzodiazepines Screen Neg (NEG) Urine Cocaine Screen Neg (NEG) Urine Cannabinoids Screen Neg (NEG) Urine Ethyl Alcohol Neg (NEG) White Blood Count 9.4 x10^3/uL (4.0-11.0) Red Blood Count 4.08 x10^6/uL (3.50-5.40) Hemoglobin 11.8 g/dL (12.0-15.5) Hematocrit 34.9 % (36.0-47.0) Mean Corpuscular Volume 86 fL (79-100) Mean Corpuscular Hemoglobin 29 pg (25-35) Mean Corpuscular Hemoglobin Concent 34 g/dL (31-37) Red Cell Distribution Width 14.7 % (11.5-14.5) Platelet Count 406 x10^3/uL (140-400) Neutrophils (%) (Auto) 58 % (31-73) Lymphocytes (%) (Auto) 30 % (24-48) Monocytes (%) (Auto) 7 % (0-9) Eosinophils (%) (Auto) 4 % (0-3) Basophils (%) (Auto) 1 % (0-3) Neutrophils # (Auto) 5.5 x10^3/uL (1.8-7.7) Lymphocytes # (Auto) 2.8 x10^3/uL (1.0-4.8) Monocytes # (Auto) 0.7 x10^3/uL (0.0-1.1) Eosinophils # (Auto) 0.4 x10^3/uL (0.0-0.7) Basophils # (Auto) 0.1 x10^3/uL (0.0-0.2) D-Dimer (Tamera) 0.23 ug/mlFEU (0.00-0.50) Sodium Level 139 mmol/L (136-145) Potassium Level 3.4 mmol/L (3.5-5.1) Chloride Level 104 mmol/L (98-107) Carbon Dioxide Level 26 mmol/L (21-32) Anion Gap 9 (6-14) Blood Urea Nitrogen 10 mg/dL (7-20) Creatinine 0.6 mg/dL (0.6-1.0) Estimated GFR (Cockcroft-Gault) 110.2 BUN/Creatinine Ratio 17 (6-20) Glucose Level 119 mg/dL (70-99) Calcium Level 8.7 mg/dL (8.5-10.1) Magnesium Level 2.0 mg/dL (1.8-2.4) Total Bilirubin 0.3 mg/dL (0.2-1.0) Aspartate Amino Transf (AST/SGOT) 20 U/L (15-37) Alanine Aminotransferase (ALT/SGPT) 30 U/L (14-59) Alkaline Phosphatase 107 U/L (46-116) Troponin I High Sensitivity 5 ng/L (4-50) 4 ng/L (4-50) SM-Aoc-U-Type Natriuretic Peptide 17 pg/mL (0-124) Total Protein 7.8 g/dL (6.4-8.2) Albumin 3.4 g/dL (3.4-5.0) Albumin/Globulin Ratio 0.8 (1.0-1.7) Thyroid Stimulating Hormone (TSH) 1.019 uIU/mL (0.358-3.74) SARS-CoV-2 Antigen (Rapid) Negative (NEGATIVE) Test 06/01/21 01:40 White Blood Count 10.7 x10^3/uL (4.0-11.0) Red Blood Count 4.27 x10^6/uL (3.50-5.40) Hemoglobin 11.9 g/dL (12.0-15.5) Hematocrit 36.7 % (36.0-47.0) Mean Corpuscular Volume 86 fL (79-100) Mean Corpuscular Hemoglobin 28 pg (25-35) Mean Corpuscular Hemoglobin Concent 32 g/dL (31-37) Red Cell Distribution Width 14.9 % (11.5-14.5) Platelet Count 440 x10^3/uL (140-400) Neutrophils (%) (Auto) 75 % (31-73) Lymphocytes (%) (Auto) 20 % (24-48) Monocytes (%) (Auto) 4 % (0-9) Eosinophils (%) (Auto) 1 % (0-3) Basophils (%) (Auto) 1 % (0-3) Neutrophils # (Auto) 8.0 x10^3/uL (1.8-7.7) Lymphocytes # (Auto) 2.1 x10^3/uL (1.0-4.8) Monocytes # (Auto) 0.4 x10^3/uL (0.0-1.1) Eosinophils # (Auto) 0.1 x10^3/uL (0.0-0.7) Basophils # (Auto) 0.1 x10^3/uL (0.0-0.2) Sodium Level 140 mmol/L (136-145) Potassium Level 3.8 mmol/L (3.5-5.1) Chloride Level 104 mmol/L (98-107) Carbon Dioxide Level 27 mmol/L (21-32) Anion Gap 9 (6-14) Blood Urea Nitrogen 10 mg/dL (7-20) Creatinine 0.5 mg/dL (0.6-1.0) Estimated GFR (Cockcroft-Gault) 136.0 BUN/Creatinine Ratio 20 (6-20) Glucose Level 103 mg/dL (70-99) Calcium Level 8.7 mg/dL (8.5-10.1) Total Bilirubin 0.4 mg/dL (0.2-1.0) Aspartate Amino Transf (AST/SGOT) 22 U/L (15-37) Alanine Aminotransferase (ALT/SGPT) 36 U/L (14-59) Alkaline Phosphatase 105 U/L (46-116) Troponin I High Sensitivity < 4 ng/L (4-50) Total Protein 8.1 g/dL (6.4-8.2) Albumin 3.6 g/dL (3.4-5.0) Albumin/Globulin Ratio 0.8 (1.0-1.7) Laboratory Tests Test 05/31/21 16:59 05/31/21 17:30 05/31/21 20:54 06/01/21 00:10 Urine Collection Type Unknown Urine Color (Auto) Light yellow Urine Turbidity Clear Urine pH (Auto) 6.0 (<5.0-8.0) Urine Specific [place] 1.025 (1.000-1.030) Urine Protein (Auto) Negative mg/dL (Negative) Urine Glucose (Auto)(UA) Negative mg/dL (Negative) Urine Ketones (Auto) Negative mg/dL (Negative) Urine Blood (Auto) Large (Negative) Urine Nitrite Negative (Negative) Urine Bilirubin (Auto) Negative (Negative) Urine Urobilinogen (Auto) Normal mg/dL (Normal) Urine Leukocyte Esterase (Auto) Negative (Negative) Urine RBC 6-10 /HPF (0-2) Urine WBC 1-4 /HPF (0-4) Urine Squamous Epithelial Cells Many /LPF Urine Bacteria Few /HPF (0-FEW) Urine Mucus Marked /LPF Urine Test Negative (NEG) Urine Opiates Screen Neg (NEG) Urine Methadone Screen Neg (NEG) Urine Barbiturates Neg (NEG) Urine Phencyclidine Screen Neg (NEG) Urine Amphetamine/Methamphetamine Neg (NEG) Urine Benzodiazepines Screen Neg (NEG) Urine Cocaine Screen Neg (NEG) Urine Cannabinoids Screen Neg (NEG) Urine Ethyl Alcohol Neg (NEG) White Blood Count 9.4 x10^3/uL (4.0-11.0) Red Blood Count 4.08 x10^6/uL (3.50-5.40) Hemoglobin 11.8 g/dL (12.0-15.5) Hematocrit 34.9 % (36.0-47.0) Mean Corpuscular Volume 86 fL (79-100) Mean Corpuscular Hemoglobin 29 pg (25-35) Mean Corpuscular Hemoglobin Concent 34 g/dL (31-37) Red Cell Distribution Width 14.7 % (11.5-14.5) Platelet Count 406 x10^3/uL (140-400) Neutrophils (%) (Auto) 58 % (31-73) Lymphocytes (%) (Auto) 30 % (24-48) Monocytes (%) (Auto) 7 % (0-9) Eosinophils (%) (Auto) 4 % (0-3) Basophils (%) (Auto) 1 % (0-3) Neutrophils # (Auto) 5.5 x10^3/uL (1.8-7.7) Lymphocytes # (Auto) 2.8 x10^3/uL (1.0-4.8) Monocytes # (Auto) 0.7 x10^3/uL (0.0-1.1) Eosinophils # (Auto) 0.4 x10^3/uL (0.0-0.7) Basophils # (Auto) 0.1 x10^3/uL (0.0-0.2) D-Dimer (Tamera) 0.23 ug/mlFEU (0.00-0.50) Sodium Level 139 mmol/L (136-145) Potassium Level 3.4 mmol/L (3.5-5.1) Chloride Level 104 mmol/L (98-107) Carbon Dioxide Level 26 mmol/L (21-32) Anion Gap 9 (6-14) Blood Urea Nitrogen 10 mg/dL (7-20) Creatinine 0.6 mg/dL (0.6-1.0) Estimated GFR (Cockcroft-Gault) 110.2 BUN/Creatinine Ratio 17 (6-20) Glucose Level 119 mg/dL (70-99) Calcium Level 8.7 mg/dL (8.5-10.1) Magnesium Level 2.0 mg/dL (1.8-2.4) Total Bilirubin 0.3 mg/dL (0.2-1.0) Aspartate Amino Transf (AST/SGOT) 20 U/L (15-37) Alanine Aminotransferase (ALT/SGPT) 30 U/L (14-59) Alkaline Phosphatase 107 U/L (46-116) Troponin I High Sensitivity 5 ng/L (4-50) 4 ng/L (4-50) VE-Xvc-H-Type Natriuretic Peptide 17 pg/mL (0-124) Total Protein 7.8 g/dL (6.4-8.2) Albumin 3.4 g/dL (3.4-5.0) Albumin/Globulin Ratio 0.8 (1.0-1.7) Thyroid Stimulating Hormone (TSH) 1.019 uIU/mL (0.358-3.74) SARS-CoV-2 Antigen (Rapid) Negative (NEGATIVE) Test 06/01/21 01:40 White Blood Count 10.7 x10^3/uL (4.0-11.0) Red Blood Count 4.27 x10^6/uL (3.50-5.40) Hemoglobin 11.9 g/dL (12.0-15.5) Hematocrit 36.7 % (36.0-47.0) Mean Corpuscular Volume 86 fL (79-100) Mean Corpuscular Hemoglobin 28 pg (25-35) Mean Corpuscular Hemoglobin Concent 32 g/dL (31-37) Red Cell Distribution Width 14.9 % (11.5-14.5) Platelet Count 440 x10^3/uL (140-400) Neutrophils (%) (Auto) 75 % (31-73) Lymphocytes (%) (Auto) 20 % (24-48) Monocytes (%) (Auto) 4 % (0-9) Eosinophils (%) (Auto) 1 % (0-3) Basophils (%) (Auto) 1 % (0-3) Neutrophils # (Auto) 8.0 x10^3/uL (1.8-7.7) Lymphocytes # (Auto) 2.1 x10^3/uL (1.0-4.8) Monocytes # (Auto) 0.4 x10^3/uL (0.0-1.1) Eosinophils # (Auto) 0.1 x10^3/uL (0.0-0.7) Basophils # (Auto) 0.1 x10^3/uL (0.0-0.2) Sodium Level 140 mmol/L (136-145) Potassium Level 3.8 mmol/L (3.5-5.1) Chloride Level 104 mmol/L (98-107) Carbon Dioxide Level 27 mmol/L (21-32) Anion Gap 9 (6-14) Blood Urea Nitrogen 10 mg/dL (7-20) Creatinine 0.5 mg/dL (0.6-1.0) Estimated GFR (Cockcroft-Gault) 136.0 BUN/Creatinine Ratio 20 (6-20) Glucose Level 103 mg/dL (70-99) Calcium Level 8.7 mg/dL (8.5-10.1) Total Bilirubin 0.4 mg/dL (0.2-1.0) Aspartate Amino Transf (AST/SGOT) 22 U/L (15-37) Alanine Aminotransferase (ALT/SGPT) 36 U/L (14-59) Alkaline Phosphatase 105 U/L (46-116) Troponin I High Sensitivity < 4 ng/L (4-50) Total Protein 8.1 g/dL (6.4-8.2) Albumin 3.6 g/dL (3.4-5.0) Albumin/Globulin Ratio 0.8 (1.0-1.7) Images: Images PROCEDURE: CT CHEST ABD PELVIS W/CONTRAST IMPRESSION: 1. Heterogeneous groundglass opacities at the left upper lower lobes may represent an infectious/inflammatory process. Follow-up CT chest imaging in 3-6 months is advised to document that this resolves. 2. No acute process in the abdomen or pelvis. 3. Uterine masses largest is a 6 cm mass at the uterine fundus. These are most likely leiomyomas. Further assessment with outpatient pelvic sonography is advised. Assessment/Plan Assessment/Plan Chest pain concerning for unstable angina/NSTEMI Intractable nausea vomiting Multiple uterine masses Obesity class I Pelvic ultrasound on outpatient basis EKG showing no acute ST elevations, QTc 420 Troponin negative x3 Continue aspirin, consider Plavix if intermediate risk will defer this to cardiology Cardiology consulted for predischarge stress testing or left heart cath Continue nitroglycerin as needed for pain Continue beta-silvestre if blood pressures allow Continue high intensity statins IV morphine as needed Counseled on weight loss via diet and exercise Maintain O2 sats between 88 to 95% Trend troponins Repeat EKG in the a.m. Continue telemetry monitoring Monitor for electrolyte abnormalities Avoid NSAIDs Justifications for Admission Other Justification BRIGITTE MONROE MD Jun 01, 2021 08:34
[2021-06-01] MEDS ORDERED: FAMOTIDINE 20 MG/2 ML VIAL IVP SCH (09:00)
--- NOTE | 2021-06-01 09:50 | PDOC2 ---
GI CONSULT Date of Service: DATE: 06/01/21 TIME: 09:41 Reason For Consult: intractable vomiting HPI: HPI: 40 y/o Sinhala-speaking female admitted through ER. No zyglo inspector/phone available. Per nurse, no GI complaints or complaints of ongoing pain this morning. Onset of right upper chest pain radiating across to left chest yesterday, associated w/ nausea. No vomiting today. No abdominal pain, diarrhea, constipation, hematochezia, or melena. Possible h/o heartburn, untreated. No previous EGD or colonoscopy. S/p cholecystectomy. No liver, pancreas, or PUD history. She denies ongoing chest pain and nausea. Mentions h/o uterine fibroids. PMH: PMH: HTN, HLD, DM , cholecystectomy FH: Family History: No pertinent hx Social History: Smoke: <1 pack per day ALCOHOL: none Drugs: None ROS: GEN: Denies fevers, chills, sweats HEENT: Denies blurred vision, sore throat CV: +chest pain RESP: Denies shortness of air, cough GI: Per HPI : Denies hematuria, dysuria ENDO: Denies weight changes NEURO: Denies confusion, dizziness MSK: Denies weakness, joint pain/swelling SKIN: Denies jaundice, pruritus Vitals: Vitals: Vital Signs Date Time Temp Pulse Resp B/P (MAP) Pulse Ox O2 Delivery O2 Flow Rate FiO2 06/01/21 08:00 Room Air 06/01/21 07:00 98.3 90 18 100/50 (67) 96 98.3 Labs: Labs: Laboratory Tests Test 05/31/21 16:59 05/31/21 17:30 05/31/21 20:54 06/01/21 00:10 Urine Collection Type Unknown Urine Color (Auto) Light yellow Urine Turbidity Clear Urine pH (Auto) 6.0 (<5.0-8.0) Urine Specific [place] 1.025 (1.000-1.030) Urine Protein (Auto) Negative mg/dL (Negative) Urine Glucose (Auto)(UA) Negative mg/dL (Negative) Urine Ketones (Auto) Negative mg/dL (Negative) Urine Blood (Auto) Large (Negative) Urine Nitrite Negative (Negative) Urine Bilirubin (Auto) Negative (Negative) Urine Urobilinogen (Auto) Normal mg/dL (Normal) Urine Leukocyte Esterase (Auto) Negative (Negative) Urine RBC 6-10 /HPF (0-2) Urine WBC 1-4 /HPF (0-4) Urine Squamous Epithelial Cells Many /LPF Urine Bacteria Few /HPF (0-FEW) Urine Mucus Marked /LPF Urine Test Negative (NEG) Urine Opiates Screen Neg (NEG) Urine Methadone Screen Neg (NEG) Urine Barbiturates Neg (NEG) Urine Phencyclidine Screen Neg (NEG) Urine Amphetamine/Methamphetamine Neg (NEG) Urine Benzodiazepines Screen Neg (NEG) Urine Cocaine Screen Neg (NEG) Urine Cannabinoids Screen Neg (NEG) Urine Ethyl Alcohol Neg (NEG) White Blood Count 9.4 x10^3/uL (4.0-11.0) Red Blood Count 4.08 x10^6/uL (3.50-5.40) Hemoglobin 11.8 g/dL (12.0-15.5) Hematocrit 34.9 % (36.0-47.0) Mean Corpuscular Volume 86 fL (79-100) Mean Corpuscular Hemoglobin 29 pg (25-35) Mean Corpuscular Hemoglobin Concent 34 g/dL (31-37) Red Cell Distribution Width 14.7 % (11.5-14.5) Platelet Count 406 x10^3/uL (140-400) Neutrophils (%) (Auto) 58 % (31-73) Lymphocytes (%) (Auto) 30 % (24-48) Monocytes (%) (Auto) 7 % (0-9) Eosinophils (%) (Auto) 4 % (0-3) Basophils (%) (Auto) 1 % (0-3) Neutrophils # (Auto) 5.5 x10^3/uL (1.8-7.7) Lymphocytes # (Auto) 2.8 x10^3/uL (1.0-4.8) Monocytes # (Auto) 0.7 x10^3/uL (0.0-1.1) Eosinophils # (Auto) 0.4 x10^3/uL (0.0-0.7) Basophils # (Auto) 0.1 x10^3/uL (0.0-0.2) D-Dimer (Tamera) 0.23 ug/mlFEU (0.00-0.50) Sodium Level 139 mmol/L (136-145) Potassium Level 3.4 mmol/L (3.5-5.1) Chloride Level 104 mmol/L (98-107) Carbon Dioxide Level 26 mmol/L (21-32) Anion Gap 9 (6-14) Blood Urea Nitrogen 10 mg/dL (7-20) Creatinine 0.6 mg/dL (0.6-1.0) Estimated GFR (Cockcroft-Gault) 110.2 BUN/Creatinine Ratio 17 (6-20) Glucose Level 119 mg/dL (70-99) Calcium Level 8.7 mg/dL (8.5-10.1) Magnesium Level 2.0 mg/dL (1.8-2.4) Total Bilirubin 0.3 mg/dL (0.2-1.0) Aspartate Amino Transf (AST/SGOT) 20 U/L (15-37) Alanine Aminotransferase (ALT/SGPT) 30 U/L (14-59) Alkaline Phosphatase 107 U/L (46-116) Troponin I High Sensitivity 5 ng/L (4-50) 4 ng/L (4-50) KD-Lmd-Y-Type Natriuretic Peptide 17 pg/mL (0-124) Total Protein 7.8 g/dL (6.4-8.2) Albumin 3.4 g/dL (3.4-5.0) Albumin/Globulin Ratio 0.8 (1.0-1.7) Thyroid Stimulating Hormone (TSH) 1.019 uIU/mL (0.358-3.74) SARS-CoV-2 Antigen (Rapid) Negative (NEGATIVE) Test 06/01/21 01:40 White Blood Count 10.7 x10^3/uL (4.0-11.0) Red Blood Count 4.27 x10^6/uL (3.50-5.40) Hemoglobin 11.9 g/dL (12.0-15.5) Hematocrit 36.7 % (36.0-47.0) Mean Corpuscular Volume 86 fL (79-100) Mean Corpuscular Hemoglobin 28 pg (25-35) Mean Corpuscular Hemoglobin Concent 32 g/dL (31-37) Red Cell Distribution Width 14.9 % (11.5-14.5) Platelet Count 440 x10^3/uL (140-400) Neutrophils (%) (Auto) 75 % (31-73) Lymphocytes (%) (Auto) 20 % (24-48) Monocytes (%) (Auto) 4 % (0-9) Eosinophils (%) (Auto) 1 % (0-3) Basophils (%) (Auto) 1 % (0-3) Neutrophils # (Auto) 8.0 x10^3/uL (1.8-7.7) Lymphocytes # (Auto) 2.1 x10^3/uL (1.0-4.8) Monocytes # (Auto) 0.4 x10^3/uL (0.0-1.1) Eosinophils # (Auto) 0.1 x10^3/uL (0.0-0.7) Basophils # (Auto) 0.1 x10^3/uL (0.0-0.2) Sodium Level 140 mmol/L (136-145) Potassium Level 3.8 mmol/L (3.5-5.1) Chloride Level 104 mmol/L (98-107) Carbon Dioxide Level 27 mmol/L (21-32) Anion Gap 9 (6-14) Blood Urea Nitrogen 10 mg/dL (7-20) Creatinine 0.5 mg/dL (0.6-1.0) Estimated GFR (Cockcroft-Gault) 136.0 BUN/Creatinine Ratio 20 (6-20) Glucose Level 103 mg/dL (70-99) Calcium Level 8.7 mg/dL (8.5-10.1) Total Bilirubin 0.4 mg/dL (0.2-1.0) Aspartate Amino Transf (AST/SGOT) 22 U/L (15-37) Alanine Aminotransferase (ALT/SGPT) 36 U/L (14-59) Alkaline Phosphatase 105 U/L (46-116) Troponin I High Sensitivity < 4 ng/L (4-50) Total Protein 8.1 g/dL (6.4-8.2) Albumin 3.6 g/dL (3.4-5.0) Albumin/Globulin Ratio 0.8 (1.0-1.7) Allergies: Coded Allergies: No Known Drug Allergies (Unverified , 09/28/13) Medications: Current Medications Medications (Trade) Dose Ordered Sig/Pancho Route PRN Reason Start Time Stop Time Status Last Admin Dose Admin Aspirin (Sona Aspirin) 325 mg 1X ONCE PO 05/31/21 17:15 05/31/21 17:16 DC 05/31/21 17:35 Nitroglycerin (Nitrostat) 0.4 mg PRN Q5MIN PRN SL CP RATING > 1/10 05/31/21 17:15 06/01/21 17:14 05/31/21 17:35 Morphine Sulfate (Morphine Sulfate) 4 mg PRN Q15MIN PRN IV/SQ PAIN GREATER THAN 3/10 05/31/21 17:15 06/01/21 17:14 05/31/21 17:37 Ondansetron HCl (Zofran) 4 mg 1X ONCE IVP 05/31/21 18:00 05/31/21 18:01 DC 05/31/21 18:05 Metoclopramide HCl (Reglan Vial) 10 mg 1X ONCE IVP 05/31/21 22:30 05/31/21 22:31 DC 05/31/21 22:53 Iohexol (Omnipaque 300 Mg/ml) 75 ml 1X ONCE IV 05/31/21 22:30 05/31/21 22:31 DC 05/31/21 22:34 Sodium Chloride 1,000 ml @ 100 mls/hr 1X ONCE IV 06/01/21 00:00 06/01/21 09:59 06/01/21 00:11 Famotidine (Pepcid Vial) 20 mg BID IVP 06/01/21 09:00 06/01/21 09:12 Imaging: Imaging: CXR Impression: 1. Low lung volumes with mild bibasilar linear atelectasis. CT C/A/P IMPRESSION: 1. Heterogeneous groundglass opacities at the left upper lower lobes may represent an infectious/inflammatory process. Follow-up CT chest imaging in 3-6 months is advised to document that this resolves. 2. No acute process in the abdomen or pelvis. 3. Uterine masses largest is a 6 cm mass at the uterine fundus. These are most likely leiomyomas. Further assessment with outpatient pelvic sonography is advised. PE: GEN: NAD HEENT: Atraumatic, PERRL LUNGS: CTAB HEART: RRR ABD: NABS, S/ND/NT EXTREMITY: No edema SKIN: No rashes, no jaundice NEURO/PSYCH: A & O 3 A/P: A/P: Chest pain, nausea Mild anemia - stable ?Heartburn CRC screen - average risk S/p cholecystectomy Abnormal CT: JULIET opacities, uterine masses/likely leiomyomas -- Currently asymptomatic. 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 Okay to try diet per GI. If tolerates, consider DC soon. Can follow-up in clinic PRN. EMORY BAZZI Jun 01, 2021 09:50
[2021-06-01 11:00] VITALS: BP 134/77
--- NOTE | 2021-06-01 12:07 | PDOC2 ---
CARDIAC CONSULT DATE OF CONSULT Date of Consult DATE: 06/01/21 TIME: 12:04 REASON FOR CONSULT Reason for Consult: Chest pain REFERRING PHYSICIAN Referring Physician: Cynthia Schultz APRN SOURCE Source: Chart review, Patient HISTORY OF PRESENT ILLNESS HISTORY OF PRESENT ILLNESS This is a 40 yo female who presented secondary to nausea/vomiting and central chest pain. Patient reports she began having pain in her central chest on Monday evening. Located in her central chest. Did not radiated to her back. Describes as burning. Has associated nausea/vomiting. Reports she vomited about 5 times. No dizziness, diaphoresis, or shortness of breath . AMI was ruled out. Nausea/vomiting and chest pain has resolved. PAST MEDICAL HISTORY Cardiovascular: Hyperlipidemia GI: GERD Endocrine: Diabetes PAST SURGICAL HISTORY Past Surgical History: Cholecystectomy SOCIAL HISTORY Social History Smoke: <1 pack per day ALCOHOL: none Drugs: None CURRENT MEDICATIONS CURRENT MEDICATIONS Current Medications Medications (Trade) Dose Ordered Sig/Pancho Route PRN Reason Start Time Stop Time Status Last Admin Dose Admin Aspirin (Sona Aspirin) 325 mg 1X ONCE PO 05/31/21 17:15 05/31/21 17:16 DC 05/31/21 17:35 Nitroglycerin (Nitrostat) 0.4 mg PRN Q5MIN PRN SL CP RATING > 1/10 05/31/21 17:15 06/01/21 17:14 05/31/21 17:35 Morphine Sulfate (Morphine Sulfate) 4 mg PRN Q15MIN PRN IV/SQ PAIN GREATER THAN 3/10 05/31/21 17:15 06/01/21 17:14 05/31/21 17:37 Ondansetron HCl (Zofran) 4 mg 1X ONCE IVP 05/31/21 18:00 05/31/21 18:01 DC 05/31/21 18:05 Metoclopramide HCl (Reglan Vial) 10 mg 1X ONCE IVP 05/31/21 22:30 05/31/21 22:31 DC 05/31/21 22:53 Iohexol (Omnipaque 300 Mg/ml) 75 ml 1X ONCE IV 05/31/21 22:30 05/31/21 22:31 DC 05/31/21 22:34 Sodium Chloride 1,000 ml @ 100 mls/hr 1X ONCE IV 06/01/21 00:00 06/01/21 09:59 DC 06/01/21 00:11 Famotidine (Pepcid Vial) 20 mg BID IVP 06/01/21 09:00 06/01/21 09:12 ALLERGIES ALLERGIES: Coded Allergies: No Known Drug Allergies (Unverified , 09/28/13) ROS Review of System 14 point ROS conducted with pertinent positives noted above in HPI PHYSICAL EXAM General: Alert, Oriented X3, Cooperative, No acute distress HEENT: Atraumatic Lungs: Clear to auscultation Heart: Regular rate Abdomen: Soft, No tenderness Extremities: No edema Skin: No breakdown, No significant lesion Neuro: Normal speech, Sensation intact Psych/Mental Status: Mental status NL, Mood NL MUSCULOSKELETAL: Osteoarthritic changes both hands VITALS/I&O VITALS/I&O: Vital Signs Date Time Temp Pulse Resp B/P (MAP) Pulse Ox O2 Delivery O2 Flow Rate FiO2 06/01/21 11:00 98.9 66 18 134/77 (96) 98 Room Air 98.9 I & O 05/31/21 05/31/21 06/01/21 15:00 23:00 07:00 Intake Total 0 ml Balance 0 ml LABS Lab: Laboratory Tests Test 05/31/21 16:59 05/31/21 17:30 05/31/21 20:54 06/01/21 00:10 Urine Collection Type Unknown Urine Color (Auto) Light yellow Urine Turbidity Clear Urine pH (Auto) 6.0 (<5.0-8.0) Urine Specific [place] 1.025 (1.000-1.030) Urine Protein (Auto) Negative mg/dL (Negative) Urine Glucose (Auto)(UA) Negative mg/dL (Negative) Urine Ketones (Auto) Negative mg/dL (Negative) Urine Blood (Auto) Large (Negative) Urine Nitrite Negative (Negative) Urine Bilirubin (Auto) Negative (Negative) Urine Urobilinogen (Auto) Normal mg/dL (Normal) Urine Leukocyte Esterase (Auto) Negative (Negative) Urine RBC 6-10 /HPF (0-2) Urine WBC 1-4 /HPF (0-4) Urine Squamous Epithelial Cells Many /LPF Urine Bacteria Few /HPF (0-FEW) Urine Mucus Marked /LPF Urine Test Negative (NEG) Urine Opiates Screen Neg (NEG) Urine Methadone Screen Neg (NEG) Urine Barbiturates Neg (NEG) Urine Phencyclidine Screen Neg (NEG) Urine Amphetamine/Methamphetamine Neg (NEG) Urine Benzodiazepines Screen Neg (NEG) Urine Cocaine Screen Neg (NEG) Urine Cannabinoids Screen Neg (NEG) Urine Ethyl Alcohol Neg (NEG) White Blood Count 9.4 x10^3/uL (4.0-11.0) Red Blood Count 4.08 x10^6/uL (3.50-5.40) Hemoglobin 11.8 g/dL (12.0-15.5) L Hematocrit 34.9 % (36.0-47.0) L Mean Corpuscular Volume 86 fL (79-100) Mean Corpuscular Hemoglobin 29 pg (25-35) Mean Corpuscular Hemoglobin Concent 34 g/dL (31-37) Red Cell Distribution Width 14.7 % (11.5-14.5) H Platelet Count 406 x10^3/uL (140-400) H Neutrophils (%) (Auto) 58 % (31-73) Lymphocytes (%) (Auto) 30 % (24-48) Monocytes (%) (Auto) 7 % (0-9) Eosinophils (%) (Auto) 4 % (0-3) H Basophils (%) (Auto) 1 % (0-3) Neutrophils # (Auto) 5.5 x10^3/uL (1.8-7.7) Lymphocytes # (Auto) 2.8 x10^3/uL (1.0-4.8) Monocytes # (Auto) 0.7 x10^3/uL (0.0-1.1) Eosinophils # (Auto) 0.4 x10^3/uL (0.0-0.7) Basophils # (Auto) 0.1 x10^3/uL (0.0-0.2) D-Dimer (Tamera) 0.23 ug/mlFEU (0.00-0.50) Sodium Level 139 mmol/L (136-145) Potassium Level 3.4 mmol/L (3.5-5.1) L Chloride Level 104 mmol/L (98-107) Carbon Dioxide Level 26 mmol/L (21-32) Anion Gap 9 (6-14) Blood Urea Nitrogen 10 mg/dL (7-20) Creatinine 0.6 mg/dL (0.6-1.0) Estimated GFR (Cockcroft-Gault) 110.2 BUN/Creatinine Ratio 17 (6-20) Glucose Level 119 mg/dL (70-99) H Calcium Level 8.7 mg/dL (8.5-10.1) Magnesium Level 2.0 mg/dL (1.8-2.4) Total Bilirubin 0.3 mg/dL (0.2-1.0) Aspartate Amino Transferase (AST) 20 U/L (15-37) Alanine Aminotransferase (ALT) 30 U/L (14-59) Alkaline Phosphatase 107 U/L (46-116) Troponin I High Sensitivity 5 ng/L (4-50) 4 ng/L (4-50) LI-Kgf-O-Type Natriuretic Peptide 17 pg/mL (0-124) Total Protein 7.8 g/dL (6.4-8.2) Albumin 3.4 g/dL (3.4-5.0) Albumin/Globulin Ratio 0.8 (1.0-1.7) L Thyroid Stimulating Hormone (TSH) 1.019 uIU/mL (0.358-3.74) SARS-CoV-2 Antigen (Rapid) Negative (NEGATIVE) Test 06/01/21 01:40 White Blood Count 10.7 x10^3/uL (4.0-11.0) Red Blood Count 4.27 x10^6/uL (3.50-5.40) Hemoglobin 11.9 g/dL (12.0-15.5) L Hematocrit 36.7 % (36.0-47.0) Mean Corpuscular Volume 86 fL (79-100) Mean Corpuscular Hemoglobin 28 pg (25-35) Mean Corpuscular Hemoglobin Concent 32 g/dL (31-37) Red Cell Distribution Width 14.9 % (11.5-14.5) H Platelet Count 440 x10^3/uL (140-400) H Neutrophils (%) (Auto) 75 % (31-73) H Lymphocytes (%) (Auto) 20 % (24-48) L Monocytes (%) (Auto) 4 % (0-9) Eosinophils (%) (Auto) 1 % (0-3) Basophils (%) (Auto) 1 % (0-3) Neutrophils # (Auto) 8.0 x10^3/uL (1.8-7.7) H Lymphocytes # (Auto) 2.1 x10^3/uL (1.0-4.8) Monocytes # (Auto) 0.4 x10^3/uL (0.0-1.1) Eosinophils # (Auto) 0.1 x10^3/uL (0.0-0.7) Basophils # (Auto) 0.1 x10^3/uL (0.0-0.2) Sodium Level 140 mmol/L (136-145) Potassium Level 3.8 mmol/L (3.5-5.1) Chloride Level 104 mmol/L (98-107) Carbon Dioxide Level 27 mmol/L (21-32) Anion Gap 9 (6-14) Blood Urea Nitrogen 10 mg/dL (7-20) Creatinine 0.5 mg/dL (0.6-1.0) L Estimated GFR (Cockcroft-Gault) 136.0 BUN/Creatinine Ratio 20 (6-20) Glucose Level 103 mg/dL (70-99) H Calcium Level 8.7 mg/dL (8.5-10.1) Total Bilirubin 0.4 mg/dL (0.2-1.0) Aspartate Amino Transferase (AST) 22 U/L (15-37) Alanine Aminotransferase (ALT) 36 U/L (14-59) Alkaline Phosphatase 105 U/L (46-116) Troponin I High Sensitivity < 4 ng/L (4-50) L Total Protein 8.1 g/dL (6.4-8.2) Albumin 3.6 g/dL (3.4-5.0) Albumin/Globulin Ratio 0.8 (1.0-1.7) L Laboratory Tests 05/31/21 17:30 06/01/21 01:40 Laboratory Tests 05/31/21 17:30 06/01/21 01:40 ASSESSMENT/PLAN ASSESSMENT/PLAN 1. Chest pain, atypical; AMI ruled out. EKG without significant acute changes 2. Nausea/vomiting. h/o GERD. GI following 3. Hyperlipidemia 4. Diabetes, II 5. GERD Recommendations Lipids, TSH Echo to assess LV systolic function, presence of WMA Could consider outpatient ischemic evaluation Supportive care Follow GI SANJANA Ayala APRN Jun 01, 2021 12:07
[2021-06-01 14:53] VITALS: BP 99/68
[2021-06-01] MEDS ORDERED: FAMO40TA4 PO (16:11)
--- NOTE | 2021-06-01 16:12 | DISCH ---
DISCHARGE INSTRUCTIONS Condition on Discharge Condition on Discharge: Stable Activity After Discharge Activity Instructions for Disc: Activity as tolerated Exercise Instruction after Dis: Walk 30 min, 5 x per week Driving Instructions after Dis: Do not drive today Weight Bearing Status after Di: As tolerated Diet after Discharge Diet after Discharge: Cardiac Follow-Up Follow up with: PCP within 2 weeks this discharge Follow Up With: Cardiology as needed or as scheduled to follow-up with echocardiogram BRIGITTE MONROE MD Jun 01, 2021 16:12
--- NOTE | 2021-06-01 17:30 | NUR ---
Discharge Note: LILIA CHRISTIANSON [place] Discharge instructions and discharge home medications reviewed with Patient and a copy given. All questions have been answered and understanding verbalized. The following instructions and handouts were given: worsening symptoms, follow up information, medication education, and activity. Discontinued lines and drains: IV discontinued from LAC, telemetry removed and skin intact. Patient discharged to home with self-care, via private transportation.
--- NOTE | 2021-06-04 13:39 | CARD ---
MR#: [id number] Date of Study: 06/01/2021 Ordering Physician: SANJANA ROCKWELL, Referring Physician: SANJANA ROCKWELL, Tech: April Izaguirre [facility] APPROVED REPORT EXAM: Two-dimensional and M-mode echocardiogram with Doppler and color Doppler. Other Information Quality : AverageHR: 90bpm INDICATION Chest Pain RISK FACTORS Hypertension 2D DIMENSIONS Left Atrium(2D)3.5 (1.6-4.0cm)IVSd1.0 (0.7-1.1cm) Aortic Root(2D)2.7 (2.0-3.7cm)LVDd3.8 (3.9-5.9cm) LVOT Diameter2.0 (1.8-2.4cm)PWd0.8 (0.7-1.1cm) LVDs2.1 (2.5-4.0cm)FS (%) 44.1 % SV47.8 ml Aortic Valve AoV Peak Rizwan.140.4cm/Jonathan Peak GR.7.9mmHg Tricuspid Valve TR P. [id number] Peak Gr.26mmHg LEFT VENTRICLE The left ventricle is normal size. There is normal left ventricular wall thickness. The left ventricu lar systolic function is normal. LV ejection fraction is 55 to 60%. There is normal LV segmental wall motion. The left ventricular diastolic function and filling is normal for age. RIGHT VENTRICLE The right ventricle is normal size. There is normal right ventricular wall thickness. The right ventr icular systolic function is normal. ATRIA The left atrium size is normal. The right atrium size is normal. The interatrial septum is intact wit h no evidence for an atrial septal defect or patent foramen ovale as noted on 2-D or Doppler imaging. AORTIC VALVE The aortic valve is normal in structure and function. Doppler and Color Flow revealed no significant aortic regurgitation. There is no significant aortic valvular stenosis. MITRAL VALVE The mitral valve is normal in structure and function. There is no evidence of mitral valve prolapse. There is no mitral valve stenosis. Doppler and Color-flow revealed trace to mild mitral regurgitation . TRICUSPID VALVE The tricuspid valve is normal in structure and function. Doppler and Color Flow revealed no tricuspid valve regurgitation noted. There is no tricuspid valve stenosis. PULMONIC VALVE The pulmonary valve is normal in structure and function. Doppler and Color Flow revealed no pulmonic valvular regurgitation. GREAT VESSELS The aortic root is normal in size. The ascending aorta is normal in size. The IVC is normal in size a nd collapses >50% with inspiration. PERICARDIAL EFFUSION There is no evidence of significant pericardial effusion. Critical Notification Critical Value: No <Conclusion> The left ventricle is normal size. The left ventricular systolic function is normal. LV ejection fraction is 55 to 60%. Doppler and Color Flow revealed no significant aortic regurgitation. There is no significant aortic valvular stenosis. Doppler and Color-flow revealed trace to mild mitral regurgitation. Doppler and Color Flow revealed no tricuspid valve regurgitation noted. Signed by : Gualberto Mix MD Electronically Approved : 06/04/2021 13:38:55
--- NOTE | 2021-06-08 08:50 | PDOC3 ---
[facility]-Discharge Summary Date of Admission: Date of Admission: Jun 01, 2021 Date of Discharge: Date of Discharge: Jun 01, 2021 Hospital Course: Hospital Course: 40 year old Welsh speaking female who presents to the ED today complaining of 7 out of 10 right-sided chest pain radiating to the left, symptoms began yesterday at 8 PM. Patient describes the pain as sharp and intermittent. Denie s anything specifically exacerbating or relieving the pain. She is also complaining of nausea. Denies any vomiting. Denies any shortness of breath. Evaluated by cardiology. See recs above. Chest pain free on day of discharge. Disposition: Disposition/Orders: D/C to Home Activity: Activity: Resume previous activity Diet: Diet: Cardiac Medications: Home Meds Active Scripts Famotidine (FAMOTIDINE) 40 Mg Tablet, 40 MG PO HS for GERD for 30 Days, #30 TAB Prov:BRIGITTE MONROE MD 06/01/21 Hydrocodone/Apap 5-325 (NORCO 5-325 TABLET) 1 Each Tablet, 1-2 TAB PO Q4-6HRS PRN for PAIN, #20 TAB Prov:BURAK ABURTO 07/02/18 Reported Medications Metformin Hcl (METFORMIN HCL ER) 500 Mg Tab.er.24h, 500 MG PO DAILYWBKFT for ANTI-DIABETIC, TAB 0 Refills 06/01/21 Atorvastatin Calcium (ATORVASTATIN CALCIUM) 10 Mg Tablet, 1 TAB PO DAILY for high cholesterol, #30 TAB 5 Refills 06/01/21 Lisinopril (LISINOPRIL) 10 Mg Tablet, 1 TAB PO DAILY for blood presssure, #30 TAB 5 Refills 06/01/21 Scheduled Atorvastatin Calcium (Atorvastatin Calcium), 1 TAB PO DAILY, (Reported) Famotidine (Famotidine), 40 MG PO HS Lisinopril (Lisinopril), 1 TAB PO DAILY, (Reported) Metformin Hcl (Metformin Hcl Er), 500 MG PO DAILYWBKFT, (Reported) Scheduled PRN Hydrocodone/Apap 5-325 ([place] 5-325 Tablet), 1-2 TAB PO Q4-6HRS PRN for PAIN Total Time: Total Time: Total time spent was 32 minutes in preparing scripts and discharge planning with SW and RN. Patient seen and examined on day of Discharge. Justicifation of Admission Dx: Justifications for Admission: Justification of Admission Dx: Yes Angina: Symp at Rest [place]: Acute NSTEMI BRIGITTE MONROE MD Jun 08, 2021 08:50
== END 2021-06-01 17:36 | disposition home or self-care (01) | DRG 313 ==
LOC: ER 16:47 → 2 NORTH 22:44
PROVIDERS: ADMIT Student in an Organized Health Care Education/Training Program; ATTEND Student in an Organized Health Care Education/Training Program
DX: R07.89 Other chest pain (principal); J98.11 Atelectasis; D21.9 Benign neoplasm of connective and other soft tissue, unspecified; E11.9 Type 2 diabetes mellitus without complications; E66.9 Obesity, unspecified; E78.5 Hyperlipidemia, unspecified; F17.210 Nicotine dependence, cigarettes, uncomplicated; I10 Essential (primary) hypertension; K21.9 Gastro-esophageal reflux disease without esophagitis; Z90.49 Acquired absence of other specified parts of digestive tract; Z68.32 Body mass index [BMI] 32.0-32.9, adult; Z20.822 Contact with and (suspected) exposure to COVID-19
CPT/HCPCS: 36415; 71045; 71260; 74177; 80053; 80061; 80307; 81001; 81025; 83735; 83880; 84443; 84484; 85025; 85379; 87426; 93005; 93306; J2270; J2405; J2765; J3490; J7030; Q9967; U0003; 99285-25; C8929; G0378